=== PATIENT | male | born 2005 | race Caucasian/White ===

== ENCOUNTER 2025-02-20 19:47 | Emergency (ER) | payer MEDICAID ==
[~2025-02-20] VITALS: Ht 188 cm; Wt 65.6 kg
[~2025-02-20 19:47] MED LIST: ESCI-8 PO; HYDR-3686 PO; NICO-907 BC; NO HOME MEDS; OLAN15TA97 PO; OLAN5TAB29 PO
[2025-02-20 19:56] VITALS: BP 167/79; PULSE 98; RESP 15; TEMP 97.6; O2SAT 99
--- NOTE | 2025-02-20 23:23 | Physician Documentation ---
History of Present Illness ~ General Chief Complaint: General Stated Complaint: JOE HILLS Time Seen by MD: 23:23 History of Present Illness Initial Comments Patient presents to the emergency room for generalized evaluation. He states he has not had his blood drawn in awhile and he is running law in his psychiatric medications and needs them refilled. Denies SI/HI Medication Reconciliation Allergies: Coded Allergies: No Known Allergies (Unverified , 02/20/25) Scheduled Escitalopram Oxalate (Escitalopram Oxalate), 1 TAB PO DAILY Escitalopram Oxalate (Escitalopram Oxalate), 1 TAB PO DAILY Hydroxyzine Hcl* (Atarax*), 50 MG PO TID Mirtazapine (Mirtazapine), 1 TAB PO HS Olanzapine (Olanzapine), 1 TAB PO HS Olanzapine (Olanzapine), 5 MG PO WL Olanzapine (Olanzapine), 5 MG PO DAILY Olanzapine (Olanzapine), 2 TAB PO DAILY Scheduled PRN Nicotine Polacrilex (Nicotine Lozenge), 4 MG BC Q30M PRN for nicotine craving Miscellaneous Medications Home Med List (No Home Medications), (Reported) Past Medical History Patient History: FH: cancer MOTHER Review of Systems ROS All review of systems negative except as per HPI Physical Exam Physical Exam Vital Signs: Temperature: 97.6, Source: Temporal, Heart Rate: 98, Respiratory Rate: 15, BP: 167/79, Pulse Oximetry: 99, Weight: 65.560 Physical Exam General: Patient is awake, alert, oriented x4 in no acute distress. Several boxes of candy in a bag at patient's bedside Head: Normocephalic and atraumatic. Eyes: Conjunctival normal. EOMI. PERRL. ENT: Mucous membranes moist. Neck: Supple, trachea is midline. Chest: Clear to auscultation bilaterally without rales, rhonchi, or wheezes. There is no accessory muscle use or retractions. Cardiac: RRR without murmurs, gallops, or rubs. Abd: Soft, nondistended, nontender, with normoactive bowel sounds. No guarding, rebound, or rigidity. Psych: Unusual affect, cooperative, poor eye contact Progress Results/Orders Results/Orders Vital Signs 02/20/25 19:56 Temp 97.6 Pulse 98 Resp 15 B/P (MAP) 167/79 Pulse Ox 99 Medical Decision Making Findings Patient presents to the emergency room requesting generalized exam and medication refill. Vital signs reassuring as are patient's physical exam. Although patient does suffering from psychiatric disturbance I do not believe he is gravely disabled and he had denies any SI/HI. I will refill his medications. Departure Disposition: HOME / SELF CARE / HOMELESS Impression: Primary Impression: General medical exam Condition: Stable Discharge Instructions: General Discharge Instructions Additional Instructions: Follow up tomorrow with [facility] Referrals: NO PRIMARY CARE PROVIDER (PCP) Prescriptions Tolnaftate (Tinactin) 1 % Powder 1 APPLIC TOP Q12H PRN for 7 Days, #108 GM 0 Refills NEEDED Prov: MIAK BAKER MD 02/20/25 Escitalopram Oxalate (Escitalopram Oxalate) 20 Mg Tablet 1 TAB PO DAILY for 30 Days, #30 TAB 0 Refills Prov: MIKA BAKER MD 02/20/25 Olanzapine (Olanzapine) 2.5 Mg Tablet 2 TAB PO DAILY, #60 TAB 0 Refills Prov: MIKA BAKER MD 02/20/25 Mirtazapine (Mirtazapine) 45 Mg Tab.rapdis 1 TAB PO HS for 30 Days, #30 TAB 0 Refills Prov: MIKA BAKER MD 02/20/25 Signature Scribe Signature: No scribe Attestation: The note accurately reflects work and decisions made by me.Mika Baker MD 02/20/25 23:35 MIAK BAKER MD Feb 20, 2025 23:23
[2025-02-20] MEDS ORDERED: OLAN2.5T77 PO (23:32)
[2025-02-20] MEDS ORDERED: MIRT45TA79 PO (23:32)
[2025-02-20] MEDS ORDERED: ESCI20TA39 PO (23:32)
[2025-02-20] MEDS ORDERED: TOLN108P2 TOP (23:34)
== END 2025-02-20 23:49 | disposition home or self-care (01) ==
LOC: ER 19:47
DX: F31.9 Bipolar disorder, unspecified (principal); Z76.0 Encounter for issue of repeat prescription; Z79.899 Other long term (current) drug therapy
CPT/HCPCS: 99281; 99282

== ENCOUNTER 2025-03-08 20:56 | Emergency (ER) | payer MEDICAID ==
[~2025-03-08] VITALS: Ht 188 cm; Wt 49.3 kg
[~2025-03-08 20:56] MED LIST changes: +ESCI20TA39 PO; +MIRT45TA79 PO; +OLAN2.5T77 PO; +TOLN108P2 TOP
[2025-03-08 21:29] VITALS: BP 110/64; PULSE 69; RESP 15; TEMP 98.6; O2SAT 93
[2025-03-08] MEDS ORDERED: OLANZapine 5mg rapidly disint. tablet PO ONE (21:55)
[2025-03-08 22:11] LABS: MEAN PLATELET VOLUME 8.0 FL (7.4-10.4); RED CELL DISTRIBUTION WIDTH 13.7 % (11.5-14.5)
--- NOTE | 2025-03-08 22:18 | Physician Documentation ---
History of Present Illness ~ Chief Complaint: See Chief Complaint Stated Complaint: ANXIETY Time Seen by MD: 21:54 HPI This is a 19-year-old male with a history of schizophrenia who presents with an unclear chief concern, patient was making many scattered tangential statements, patient had made a statement to the triage nurse about having thoughts of suicidal ideation however then reported that he was not having thoughts of suicidal ideation and was concerned about a small boil on his arm, then concerns for persistent ringing in his left ear, patient unable to elaborate on any single chief concern. Patient reports running out of prescribed medications for mental health. Patient reports that he can walk home however he is unable to report location of where his home is. Patient reports marijuana use earlier in the day though reports no other drug use today. Medication Reconciliation Allergies: Coded Allergies: No Known Allergies (Unverified , 02/20/25) Scheduled Escitalopram Oxalate (Escitalopram Oxalate), 1 TAB PO DAILY Escitalopram Oxalate (Escitalopram Oxalate), 1 TAB PO DAILY Hydroxyzine Hcl* (Atarax*), 50 MG PO TID Mirtazapine (Mirtazapine), 1 TAB PO HS Olanzapine (Olanzapine), 1 TAB PO HS Olanzapine (Olanzapine), 5 MG PO WL Olanzapine (Olanzapine), 5 MG PO DAILY Olanzapine (Olanzapine), 2 TAB PO DAILY Tolnaftate (Tinactin), 1 APPLIC TOP Q12H PRN Scheduled PRN Nicotine Polacrilex (Nicotine Lozenge), 4 MG BC Q30M PRN for nicotine craving Miscellaneous Medications Home Med List (No Home Medications), (Reported) Past Medical History Past Medical History: Schizophrenia Patient History: FH: cancer MOTHER Review of Systems ROS As stated above in the HPI, otherwise all systems are reviewed and negative. Physical Exam Vital Signs: Temperature: 98.6, Source: Temporal, Heart Rate: 69, Respiratory Rate: 15, BP: 110/64, Pulse Oximetry: 93, Weight: 49.300 Physical Exam VITALS: Reviewed and as above. GENERAL: Alert, nontoxic appearing, no apparent distress. RESPIRATORY: No increased work of breathing, no respiratory distress, speaking in full clear sentences NEURO: GCS 15 PSYCH: Pressured scattered tangential speech, voicing no HI or SI Progress Results/Orders Results/Orders Orders - LAKSHMI METZ Urinalysis (03/08/25 21:53) Drug Screen, Urine (03/08/25 21:53) Med Rec (03/08/25 21:53) Close Observation Level (03/08/25 21:53) Covid19 Binax Poc Result Entry (03/08/25 21:53) Substance Use Navigator (03/08/25 21:53) Completed Orders - LAKSHMI METZ GENERATION ENGINEER Cbc/Diff (03/08/25 21:53) Ethanol (03/08/25 21:53) TSH (03/08/25 21:53) BMP (03/08/25 21:53) Olanzapine Disint. Tablet (Zyprexa Zydis (03/08/25 21:55) Vital Signs 03/08/25 21:29 Temp 98.6 Pulse 69 Resp 15 B/P (MAP) 110/64 Pulse Ox 93 Laboratory Tests Test 03/08/25 22:02 White Blood Count 10.7 Red Blood Count 4.82 Hemoglobin 14.7 Hematocrit 42.3 Mean Corpuscular Volume 87.7 Mean Corpuscular Hemoglobin 30.4 Mean Corpuscular Hemoglobin Concent 34.7 Red Cell Distribution Width 13.7 Platelet Count 302 Mean Platelet Volume 8.0 Neutrophils (%) (Auto) 74.6 Lymphocytes (%) (Auto) 18.3 L Monocytes (%) (Auto) 5.4 Eosinophils (%) (Auto) 1.2 Basophils (%) (Auto) 0.5 Neutrophils # (Auto) 8.0 H Lymphocytes # (Auto) 2.0 Monocytes # (Auto) 0.6 Eosinophils # (Auto) 0.1 Basophils # (Auto) 0.1 CBC Comment Sodium Level 137 Potassium Level 3.8 Chloride Level 104 Carbon Dioxide Level 23.3 L Anion Gap 10 Blood Urea Nitrogen 7 Creatinine 1.13 H Estimated GFR/1.73 m2 82 BUN/Creatinine Ratio 6.2 L Glucose Level 93 Calcium Level 9.0 Albumin 4.3 Thyroid Stimulating Hormone (TSH) 1.30 Chemistry Comments Ethyl Alcohol Level < 10 Medical Decision Making Findings 19-year-old male history of schizophrenia presented with unclear chief complaint and tangential speech, it was reassuring that patient when asked multiple times if he had thoughts of hurting himself or others reported no, due to patient changing chief concern frequently I did have concern that patient may meet criteria for 1799 therefore initiated mental health clearance labs and orders however patient did not clearly meet 1799 criteria as he poses no clear threat to himself or others and evaluation was limited to if the patient met criteria for grave disability, as patient reports recent marijuana use there was some consideration given to patient's behavior combination of the drug use and underlying mental health condition, dose of Zyprexa was ordered with a plan for re-evaluation after patient was medicated. While patient was waiting for medication he requested to leave, that has a had no criteria currently to hold patient on 1798 no attempts were made to start patient from leaving by nursing staff however patient was not cleared for discharge and has a eloped. Differential Dx:Considerations: Include: Alcohol abuse, Anxiety, Bipolar disord er, Conversion disorder, Depression, Encephaloathy, Homicidal, Panic disorder, Personality disorder, Schizophrenia, Substance abuse, Suicidal, Other (Alcohol intoxication, drug abuse, drug intoxication) Departure Disposition: LEFT AWOL/ELOPED Impression: Primary Impression: Mental health disorder Condition: Stable Referrals: NO PRIMARY CARE PROVIDER (PCP) Signature Scribe Signature: No scribe Attestation: The note accurately reflects work and decisions made by me.SANTY Leon 03/09/25 00:19 LAKSHMI METZ Mar 08, 2025 22:18
[2025-03-08 22:35] LABS: CREATININE 1.13 MG/DL (0.60-1.10); ETHANOL < 10 MG/DL (<10); TOTAL CARBON DIOXIDE 23.3 MMOL/L (24-32); eCRCL 72 ML/MIN; eGFR 82 ML/MIN
== END 2025-03-08 22:26 | disposition home or self-care (01) ==
LOC: ER 20:56
DX: F99 Mental disorder, not otherwise specified (principal); R45.851 Suicidal ideations; F20.9 Schizophrenia, unspecified; F12.90 Cannabis use, unspecified, uncomplicated; Z79.899 Other long term (current) drug therapy
CPT/HCPCS: 36415; 80048; 80320; 84443; 85025; 99283

== ENCOUNTER 2025-03-29 19:34 | Emergency (ER) | payer MEDICAID ==
[~2025-03-29] VITALS: Ht 188 cm; Wt 80.0 kg
[2025-03-29 19:38] VITALS: BP 108/60; PULSE 85; RESP 18; O2SAT 98
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
[2025-03-29 20:03] VITALS: TEMP 98
[2025-03-29] MEDS: ibuprofen tablet 400 MG TABLET PO ONE (20:09)
--- NOTE | 2025-03-29 20:10 | RADIOLOGY REPORT ---
CHEST RADIOGRAPH Indication: Blunt chest injury Technique: Single frontal view of the chest was obtained COMPARISON: None FINDINGS: Lines and Tubes: None Lungs: Clear Pleura: No effusion. No pneumothorax. Cardiomediastinal contours: Unremarkable Bones: Unremarkable IMPRESSION: No acute disease.
== END 2025-03-29 20:11 | disposition home or self-care (01) ==
LOC: ER 19:34
DX: S20.219A Contusion of unspecified front wall of thorax, initial encounter (principal); F20.9 Schizophrenia, unspecified; X58.XXXA Exposure to other specified factors, initial encounter; Y93.89 Activity, other specified; Y92.89 Other specified places as the place of occurrence of the external cause; Y99.8 Other external cause status
CPT/HCPCS: 71045; 99283